=== PATIENT | male | born 1970 | race Caucasian/White ===

== ENCOUNTER 2016-07-01 17:55 | Emergency (ER) | payer OTHER ==
[2016-07-01 18:04] VITALS: TEMP 97.7
--- NOTE | 2016-07-01 18:25 | DX ---
Right ankle - 3 views Indication: Jumped off ladder. Lateral pain. Technique: AP, mortise, and lateral views. Comparison: None Findings: The bones are anatomically aligned. No acute fracture or derangement of the mortise. Minima l lateral soft tissue swelling. Impression: Negative. No acute fracture.
--- NOTE | 2016-07-01 19:00 | EDPHY ---
H & P Time Seen by Provider: 07/01/16 18:24 HPI/ROS: CHIEF COMPLAINT: right ankle pain HISTORY OF PRESENT ILLNESS: This otherwise healthy 46-year-old male, presents to the emergency department after an inversion ankle injury. The patient complains of pain to the lateral ankle and swelling. The patient has no other complaints, denies numbness or tingling to affected limb. Smoking Status: Former smoker Physical Exam: General appearance: alert no distress Right ankle: There is swelling and tenderness over the lateral. TTP to ATFL and CFL. There is no tenderness over the achilles tendon. The foot is non-tender without swelling. No TTP over 5th metatarsal. Neurologic exam: The patient has normal sensation and motor function distal to the injury. Vascular exam: Normal pulses and capillary refill in the foot Constitutional: Initial Vital Signs Temperature (C) 36.5 C 07/01/16 18:00 Heart Rate 75 07/01/16 18:00 Respiratory Rate 16 07/01/16 18:00 Blood Pressure 101/76 07/01/16 18:00 O2 Sat (%) 97 07/01/16 18:00 O2 Delivery Mode Room Air Allergies/Adverse Reactions: No Known Allergies Allergy (Unverified 07/01/16 18:03) Home Medications: Medication Instructions Recorded NK [No Known Home Meds] 07/01/16 MDM/Departure - MDM Diagnostics: Right ankle x-ray independently reviewed by me- Findings: The bones are anatomically aligned. No acute fracture or derangement of the mortise. Minimal lateral soft tissue swelling. Impression: Negative. No acute fracture. Dictated By: Leonard Guadarrama MD - Depart Disposition: Home, Routine, Self-Care Clinical Impression: Moderate right ankle sprain Qualifiers: Encounter type: initial encounter Qualifier Code: (S93.401A) Sprain of unspecified ligament of right ankle, initial encounter Condition: Good Instructions: Ankle Sprain (ED) Additional Instructions: Rest, ice, elevate, take 600mg of ibuprofen every 8 hours with food for 3-5 days as needed for pain and swelling. Use crutches as needed for weight- bearing. Follow up with orthopedist for pain that is not improving in the next 7-10 days. Return to the emergency department for any numbness, tingling, discoloration of you limb or other concerns. Referrals: All Gómez MD [Medical Doctor] - As per Instructions (Orthopedist on-call )
[2016-07-01] MEDS ORDERED: IBUPROFEN 600 MG TAB PO ONE (19:21)
[2016-07-01 19:32] VITALS: BP 134/93; PULSE 79; RESP 20; O2SAT 96
== END 2016-07-01 19:32 | disposition home or self-care (01) ==
DX: S93.401A Sprain of unspecified ligament of right ankle, initial encounter (principal); Z87.891 Personal history of nicotine dependence; X58.XXXA Exposure to other specified factors, initial encounter
CPT/HCPCS: L4350